=== PATIENT | female | born 1950 | race African-American/Black ===

== ENCOUNTER → 2019-10-30 | Outpatient (CLI) | payer MEDICARE, OTHER ==
[2019-10-30 12:56] VITALS: BP 114/58
== END | disposition home or self-care (01) ==
LOC: SURG 12:22
PROVIDERS: ATTEND Anesthesiology
DX: M54.12 Radiculopathy, cervical region (principal); I10 Essential (primary) hypertension; M19.90 Unspecified osteoarthritis, unspecified site
CPT/HCPCS: 99204; G0463

== ENCOUNTER → 2019-12-18 | Outpatient (CLI) | payer MEDICARE, OTHER ==
[~2019-12-18] MED LIST: 0.9 % SODIUM CHLORIDE 10 ML VIAL. ONE; ALLO100T PO; AMIT25TA PO; ASPI-630 PO; ATEN1TAB4 PO; ATOR20TA58 PO; CHOL500021 PO; DEXAMETHASONE SOD PHOS 10 MG/ML VIAL. ONE; DULO60CA6 PO; GABA-587 PO; GABA800T5 PO; HYDR200T5 PO; IOHEXOL 300 MG/ML 50 ML VIAL. ONE; LEVO100T5 PO; LIDOCAINE 1% PF 30 ML VIAL. ONE; MELA5TAB20 PO; METF500T16 PO; MONT10TA80 PO; POTA20TA4 PO
[2019-12-18 14:32] VITALS: BP 139/79
== END | disposition home or self-care (01) ==
LOC: SURG 13:00
PROVIDERS: ATTEND Anesthesiology
DX: M54.12 Radiculopathy, cervical region (principal); I10 Essential (primary) hypertension; Z79.82 Long term (current) use of aspirin; Z79.899 Other long term (current) drug therapy; Z88.0 Allergy status to penicillin
CPT/HCPCS: 62321; J1100; J2001; Q9967

== ENCOUNTER → 2020-03-04 | Outpatient (CLI) | payer MEDICARE, OTHER ==
[2020-03-04 13:33] VITALS: BP 152/87
== END | disposition home or self-care (01) ==
LOC: SURG 12:11
PROVIDERS: ATTEND Anesthesiology
DX: M54.16 Radiculopathy, lumbar region (principal); J45.909 Unspecified asthma, uncomplicated; M19.90 Unspecified osteoarthritis, unspecified site; I10 Essential (primary) hypertension; Z79.899 Other long term (current) drug therapy; Z79.82 Long term (current) use of aspirin; Z79.84 Long term (current) use of oral hypoglycemic drugs; Z88.0 Allergy status to penicillin
CPT/HCPCS: 62321; 72275; J1100; J2001; Q9967

== ENCOUNTER 2020-03-13 15:36 | Inpatient (IN) | payer MEDICARE, OTHER ==
[~2020-03-13] VITALS: Ht 172.7 cm; Wt 120.5 kg
[~2020-03-13 15:36] MED LIST changes: -0.9 % SODIUM CHLORIDE 10 ML VIAL. ONE; -DEXAMETHASONE SOD PHOS 10 MG/ML VIAL. ONE; -IOHEXOL 300 MG/ML 50 ML VIAL. ONE; -LIDOCAINE 1% PF 30 ML VIAL. ONE
--- NOTE | 2020-03-13 16:02 | EKG ---
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
--- NOTE | 2020-03-13 16:02 | PHYS DOC ---
Past History Past Medical History: Arthritis, Other Additional Past Medical Histor: Pricillamichaelus, (KELLEN FALK DO) Past Surgical History: No Surgical History (KELLEN FALK DO) Alcohol Use: None (KELLEN FALK DO) General Adult EDM: Chief Complaint: HEADACHE HPI: HPI: History obtained from patient. Patient is a 70-year-old female with a history of lupus and arthritis who presents with chief complaint of headache status post fall 3 days ago. She states she was walking in the house and fell to the ground. She denies memory of the circumstances regarding her fall. She thinks that she hit her head against carpet. She is unsure whether she lost consciousness or not. She states she is unsure of how long she was down. She states she had a progressive headache to the top of her head since then. States it is aching and nonradiating. Denies any acute vision or hearing changes. Denies any focal weakness. Denies history of cardiac disease. Denies any chest pain or shortness of breath. Denies fevers. Denies cough. She feels that she may have had some slurred speech intermittently throughout the day. Denies drug or alcohol usage. Denies any confusion or difficulty swallowing. Does not take any blood thinners. Patient denies any history of immobilization greater than 48 hours, recent h ospitalizations, recent surgery, recent trauma, , oral contraceptive usage, hormone replacement therapy, air travel greater than 8 hours, recent infectious disease, or general deterioration of their overall condition. (KELLEN FALK DO) Review of Systems: Review of Systems: Constitutional: Denies fever or chills Eyes: Denies change in visual acuity HENT: Denies nasal congestion or sore throat Respiratory: Denies cough or shortness of breath Cardiovascular: Denies chest pain or edema GI: Denies abdominal pain, nausea, vomiting, bloody stools or diarrhea : Denies dysuria Musculoskeletal: Positive for fall Integument: Denies rash Neurologic: Positive for headache Endocrine: Denies polyuria or polydipsia Lymphatic: Denies swollen glands Psychiatric: Denies depression or anxiety (KELLEN FALK DO) Allergies: Allergies: Allergies Coded Allergies Type Severity Reaction Last Updated Verified Penicillins Allergy Unknown 10/30/19 Yes (KELLEN FALK DO) Physical Exam: PE: Constitutional: Well developed, well nourished, no acute distress, non-toxic appearance. [] HENT: Normocephalic, atraumatic, bilateral external ears normal, oropharynx moist, no oral exudates, nose normal. [] Eyes: PERRLA, EOMI, conjunctiva normal, no discharge. [] Neck: Normal range of motion, no tenderness, supple, no stridor. [] Cardiovascular:Heart rate regular rhythm, no murmur [] Lungs & Thorax: Bilateral breath sounds clear to auscultation [] Abdomen: Bowel sounds normal, soft, no tenderness, no masses, no pulsatile masses. [] Skin: Warm, dry, no erythema, no rash. [] Back: No tenderness, no CVA tenderness. [] Extremities: No tenderness, no cyanosis, no clubbing, ROM intact, no edema. [] Neurologic: Alert and oriented X 3, normal motor function, normal sensory function, no focal deficits noted. [] Psychologic: Affect normal, judgement normal, mood normal. [] (KELLEN FALK DO) Current Patient Data: Labs: Laboratory Tests Test 03/13/20 16:07 White Blood Count 5.0 x10^3/uL Red Blood Count 4.78 x10^6/uL Hemoglobin 13.7 g/dL Hematocrit 41.7 % Mean Corpuscular Volume 87 fL Mean Corpuscular Hemoglobin 29 pg Mean Corpuscular Hemoglobin Concent 33 g/dL Red Cell Distribution Width 13.0 % Platelet Count 212 x10^3/uL Neutrophils (%) (Auto) 34 % Lymphocytes (%) (Auto) 53 % Monocytes (%) (Auto) 10 % Eosinophils (%) (Auto) 2 % Basophils (%) (Auto) 1 % Neutrophils # (Auto) 1.7 x10^3uL Lymphocytes # (Auto) 2.6 x10^3/uL Monocytes # (Auto) 0.5 x10^3/uL Eosinophils # (Auto) 0.1 x10^3/uL Basophils # (Auto) 0.0 x10^3/uL Sodium Level 138 mmol/L Potassium Level 2.7 mmol/L Chloride Level 101 mmol/L Carbon Dioxide Level 31 mmol/L Anion Gap 6 Blood Urea Nitrogen 11 mg/dL Creatinine 1.0 mg/dL Estimated GFR (Cockcroft-Gault) 66.7 BUN/Creatinine Ratio 11 Glucose Level 112 mg/dL Calcium Level 9.9 mg/dL Magnesium Level 1.8 mg/dL Total Bilirubin 0.4 mg/dL Aspartate Amino Transf (AST/SGOT) 16 U/L Alanine Aminotransferase (ALT/SGPT) 16 U/L Alkaline Phosphatase 127 U/L Troponin I Quantitative 0.230 ng/mL Total Protein 7.1 g/dL Albumin 3.2 g/dL Albumin/Globulin Ratio 0.8 Lipase 45 U/L Ethyl Alcohol Level < 10 mg/dL Current Medications Medications (Trade) Dose Ordered Sig/Samy Route PRN Reason Start Time Stop Time Status Last Admin Dose Admin Potassium Chloride 100 ml @ 100 mls/hr Q1H IV 03/13/20 17:00 03/13/20 20:59 03/13/20 17:41 Sodium Chloride 1,000 ml @ 100 mls/hr 1X ONCE IV 03/13/20 17:00 03/14/20 02:59 03/13/20 16:59 Aspirin (Aspirin Chewable) 324 mg 1X ONCE PO 03/13/20 17:15 03/13/20 17:17 DC Heparin Sodium (Porcine) (Heparin Sodium) 4,000 unit 1X ONCE IV 03/13/20 17:15 03/13/20 17:17 DC 03/13/20 17:45 Heparin Sodium/ Dextrose 250 ml @ 10 mls/hr 1X ONCE IV 03/13/20 17:15 03/14/20 18:14 03/13/20 17:48 Iohexol (Omnipaque 350 Mg/ml) 100 ml 1X ONCE IV 03/13/20 17:30 03/13/20 17:31 DC 03/13/20 17:43 Vital Signs: Vital Signs Date Time Temp Pulse Resp B/P (MAP) Pulse Ox O2 Delivery O2 Flow Rate FiO2 03/13/20 15:45 97.8 56 16 147/60 (89) 99 Room Air (KELLEN FALK ) EKG: EKG: EKG consistent with sinus bradycardia. Ventricular rate of 54 bpm. Flipped T waves noted in the inferior leads and -lead V2. No acute ST segment elevation appreciated. Nonspecific EKG. [] EKG#2 1722: EKG consistent with sinus bradycardia. Ventricular rate of 54 bpm. Left axis noted. Flipped T wave noted in leads III and aVF. No ST segment e levation or dynamic changes appreciated. (KELLEN FALK DO) Radiology/Procedures: Radiology/Procedures: [address] [address] IMAGING REPORT Signed PATIENT: ELISEO TRAMMELL AACCOUNT: [id number] : 1950 LOCATION: ER AGE: 70 SEX: F EXAM STATUS: REG ER ORD. PHYSICIAN: KELLEN FALK DO REASON: syncope PROCEDURE: CHEST AP ONLY CHEST AP ONLY INDICATION: syncope / Spl. Instructions: / History: . COMPARISON STUDY: None. FINDINGS: Lungs: Normal lung volume. No pulmonary mass or consolidation. The tracheobronchial tree and hilar structures are normal. Pleura: No pleural effusion or pneumothorax. Heart and Mediastinum: The cardiomediastinal silhouette is normal. The great vessels of the thorax are normal. IMPRESSION: No acute cardiopulmonary process. Electronically signed by: Sandi Hernandez MD (03/13/2020 4:22 PM) [id number] DICTATED AND SIGNED BY: SANDI HERNANDEZ MD DATE: 03/13/201621 CC: YASMANY CASTRO; KELLEN FALK DO ~MTH0 0 [][address] [address] IMAGING REPORT Signed PATIENT: ELISEO TRAMMELL AACCOUNT: [id number] : 1950 LOCATION: ER AGE: 70 SEX: F EXAM STATUS: REG ER ORD. PHYSICIAN: KELLEN FALK DO REASON: syncope PROCEDURE: CT HEAD AND CERVICAL SPINE WO CT head without contrast. CT cervical spine without contrast PQRS statement: CT scans at this facility use dose reduction including either automated exposure control, iterative reconstructions, and /or weight based radiation dosing via mA and kV modification when appropriate to reduce radiation dose to as low as reasonably achievable. HISTORY: Syncope. COMPARISON: CT head July 31, 2012 CT head findings: Anterior of the left superior frontal gyrus image 16 there is a 3 mm thin linear density along the surface not apparent on the prior exam this may be calcification although a small subarachnoid hemorrhage is not excluded. No mass. No hydrocephalus. No infarction. Heterogeneous areas of cerebral white matter hypoattenuation are nonspecific most likely representing changes of chronic small vessel ischemic disease. Orbits, mastoids and bones are unremarkable. IMPRESSION: 3 mm thin linear density along the surface of the left superior frontal gyrus could represent calcification versus a small subarachnoid hemorrhage. This is new from prior imaging. CT cervical spine findings: Precervical junction intact. Arthrosis with chronic sclerotic ossicles along the anterior C1 arch and bone spurring at the atlantodental articulation. Cervical vertebral body height and alignment intact. No fracture of the cervical spine. Cervical disc height loss and bulky disc osteophytes and uncovertebral spurring with spinal canal and neural foraminal stenoses at C4-C5, C5-C6 and C6-7. Lung apices unremarkable. Indistinct 3 center hypodense left thyroid mass. Retropharyngeal left carotid artery panfilo the left posterior pharyngeal wall. IMPRESSION: 1. No acute osseous injury of the cervical spine. 2. 3 cm hypodense left thyroid mass. Consider further evaluation with outpatient neck soft tissue ultrasound. 3. Cervical disc disease. FOR INTERNAL CODING PURPOSES Critical result: Findings discussed with KELLEN FALK at 03/13/2020 4:28 PM. RESULT CODE: (C) Electronically signed by: Varghese Serrano MD (03/13/2020 4:30 PM) [facility] [place] DICTATED AND SIGNED BY: VARGHESE SERRANO MD DATE: 03/13/20 163 CC: YASMANY CASTRO; KELLEN FALK DO ~MTH0 0 (KELLEN FALK DO) Heart Score: HEART Score for Chest Pain: HEART Score for Chest Pain Response (Comments) Value History Slighlty/Non-Suspicious 0 ECG Nonspecific Repolarizatio 1 Age > 65 2 Risk Factors 1 or 2 Risk Factors 1 Troponin >3 x Normal Limit 2 Total 6 Risk Factors: Risk Factors: DM, Current or recent (<one month) smoker, HTN, HLP, family hist ory of CAD, obesity. Risk Scores: Score 0 - 3: 2.5% MACE over next 6 weeks - Discharge Home Score 4 - 6: 20.3% MACE over next 6 weeks - Admit for Clinical Observation Score 7 - 10: 72.7% MACE over next 6 weeks - Early Invasive Strategies (KELLEN FALK DO) Course & Med Decision Making: Course & Med Decision Making Pertinent Labs and Imaging studies reviewed. (See chart for details) [] Patient is a 70-year-old female who presents with chief complaint of headache after fall 3 days ago. Initial vital signs unremarkable. EKG shows nonspecific T wave inversion in the inferior leads. She denies any chest pain or shortness of breath. CT imaging did note a nondescript density in the left frontal lobe. Radiology stated they cannot exclude subarachnoid hemorrhage. I did speak with neurosurgical CEPHALOMETRIC ANALYST Shira. After consultation with neurosurgeon Dr. Henriquez this likely represents incidental density. No concern for subarachnoid hemorrhage. Patient did have elevated troponin of 0.230 in the setting of normal kidney function. Potassium 2.7. Patient continues to deny any chest pain or shortness of breath. Likely NSTEMI in nature. CT PE study is pending at this time. Heparinization will be initiated. I did speak with electric meter repairer helper who felt the patient was appropriate to stay at [facility]. At this time CT PE study is pending. I have signed out the patient's emergency department care to Dr. Ruiz. We discussed the history, physical exam findings, completed and pending laboratory results and imaging studies. We have also discussed the current treatment plan and expected clinical course. Please refer to chart for the patient's remaining emergency department course, final disposition, and clinical impression(s). (KELLEN FALK DO) Course & Med Decision Making Signout received from off going physician. I reviewed patient's chart fully and reviewed ER work-up so far I personally saw patient and repeated certain aspects of history and physical examination. Given patient's hypokalemia, I administered an additional 40 mEq p.o. Kdur Patient's imaging negative. Daytime physician discussed case with hospitalist and electric meter repairer helper, given that imaging was negative patient is able to be admitted to our facility, [facility], for further inpatient medical management Patient was updated on this decision, all questions and concerns addressed prior to ER transportation to [facility] via EMS in stable condition (EZEQUIEL RUIZ DO) Hema Disclaimer: Hema Disclaimer: This electronic medical record was generated, in whole or in part, using a voice recognition dictation system. (KELLEN FALK DO) Departure Departure: Impression: Primary Impression: Hypokalemia Additional Impression: NSTEMI (non-ST elevated myocardial infarction) Disposition: 09 ADMITTED INPT THIS HOSP Admitting Physician: Julio Barr (EZEQUIEL RUIZ DO) Referrals: YASMANY CASTRO (PCP) KELLEN FALK DO Mar 13, 2020 16:02 EZEQUIEL RUIZ DO Mar 13, 2020 18:35
[2020-03-13 16:21] LABS: BASO % 1 % (0-3); EOS # 0.1 x10^3/uL (0.0-0.7); EOS % 2 % (0-3); HEMATOCRIT 41.7 % (36.0-47.0); HEMOGLOBIN 13.7 g/dL (12.0-15.5); LYMPH # 2.6 x10^3/uL (1.0-4.8); LYMPH % 53 % (24-48); MEAN CORPUSCULAR HEMOGLOBIN 29 pg (25-35); MEAN CORPUSCULAR HGB CONC 33 g/dL (31-37); MEAN CORPUSCULAR VOLUME 87 fL (79-100); MONO # 0.5 x10^3/uL (0.0-1.1); MONO % 10 % (0-9); NEUT # 1.7 x10^3uL (1.8-7.7); NEUT % 34 % (31-73); PLATELET COUNT 212 x10^3/uL (140-400); RED BLOOD COUNT 4.78 x10^6/uL (3.50-5.40)
--- NOTE | 2020-03-13 16:25 | RAD ---
CHEST AP ONLY INDICATION: syncope / Spl. Instructions: / History: . COMPARISON STUDY: None. FINDINGS: Lungs: Normal lung volume. No pulmonary mass or consolidation. The tracheobronchial tree and hilar structures are normal. Pleura: No pleural effusion or pneumothorax. Heart and Mediastinum: The cardiomediastinal silhouette is normal. The great vessels of the thorax are normal. IMPRESSION: No acute cardiopulmonary process. Electronically signed by: Luis Felipe Hernandez MD (03/13/2020 4:22 PM) [id number]
--- NOTE | 2020-03-13 16:32 | RAD ---
CT head without contrast. CT cervical spine without contrast PQRS statement: CT scans at this facility use dose reduction including either automated exposure control, iterative reconstructions, and /or weight based radiation dosing via mA and kV modification when appropriate to reduce radiation dose to as low as reasonably achievable. HISTORY: Syncope. COMPARISON: CT head July 31, 2012 CT head findings: Anterior of the left superior frontal gyrus image 16 there is a 3 mm thin linear density along the surface not apparent on the prior exam this may be calcification although a small subarachnoid hemorrhage is not excluded. No mass. No hydrocephalus. No infarction. Heterogeneous areas of cerebral white matter hypoattenuation are nonspecific most likely representing changes of chronic small vessel ischemic disease. Orbits, mastoids and bones are unremarkable. IMPRESSION: 3 mm thin linear density along the surface of the left superior frontal gyrus could represent calcification versus a small subarachnoid hemorrhage. This is new from prior imaging. CT cervical spine findings: Precervical junction intact. Arthrosis with chronic sclerotic ossicles along the anterior C1 arch and bone spurring at the atlantodental articulation. Cervical vertebral body height and alignment intact. No fracture of the cervical spine. Cervical disc height loss and bulky disc osteophytes and uncovertebral spurring with spinal canal and neural foraminal stenoses at C4-C5, C5-C6 and C6-7. Lung apices unremarkable. Indistinct 3 center hypodense left thyroid mass. Retropharyngeal left carotid artery panfilo the left posterior pharyngeal wall. IMPRESSION: 1. No acute osseous injury of the cervical spine. 2. 3 cm hypodense left thyroid mass. Consider further evaluation with outpatient neck soft tissue ultrasound. 3. Cervical disc disease. FOR INTERNAL CODING PURPOSES Critical result: Findings discussed with KELLEN FALK at 03/13/2020 4:28 PM. RESULT CODE: (C) Electronically signed by: Terence Calvillo MD (03/13/2020 4:30 PM) [facility]
[2020-03-13 16:40] LABS: ALBUMIN 3.2 g/dL (3.4-5.0); ALBUMIN/GLOBULIN RATIO 0.8 (1.0-1.7); CALCIUM 9.9 mg/dL (8.5-10.1); GFR 66.7; MAGNESIUM 1.8 mg/dL (1.8-2.4); TOTAL BILIRUBIN 0.4 mg/dL (0.2-1.0); TOTAL PROTEIN 7.1 g/dL (6.4-8.2)
[2020-03-13 16:43] LABS: POTASSIUM 2.7 mmol/L (3.5-5.1)
[2020-03-13] MEDS ORDERED: IV NORMAL SALINE 1,000ML 1,000 ML IV ONE (17:00)
[2020-03-13] MEDS: POTASSIUM CHLORIDE 10MEQ 100 ML IV SCH ×4 (17:00→20:00)
[2020-03-13] MEDS ORDERED: ASPIRIN CHEWABLE 81 MG TABLET. PO ONE (17:15)
[2020-03-13] MEDS ORDERED: HEPARIN 25,000UTS/250ML PREMIX 250 ML IV ONE (17:15)
[2020-03-13] MEDS ORDERED: HEPARIN for IV BOLUS 10,000 UNIT/10 ML VIAL. IV ONE (17:15)
[2020-03-13] MEDS ORDERED: IOHEXOL 350 MG/ML 100 ML VIAL. IV ONE (17:30)
--- NOTE | 2020-03-13 17:40 | EKG ---
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
[2020-03-13 17:59] LABS: BARBITURATES NEG (NEG); BENZODIAZEPINES NEG (NEG); CANNABINOIDS NEG (NEG); COCAINE NEG (NEG); METHADONE NEG (NEG); OPIATES POS (NEG); PHENCYCLIDINE NEG (NEG)
[2020-03-13 18:01] LABS: BILIRUBIN,URINE NEG (NEG); CLARITY,URINE CLEAR; COLOR,URINE YELLOW; GLUCOSE,URINE NEG (NEG); NITRITE,URINE NEG (NEG); UROBILINOGEN,URINE 0.2 mg/dL (0.2 mg/dL)
[2020-03-13 18:02] LABS: BACTERIA,URINE FEW /HPF (0-FEW); RBC,URINE 0 /HPF (0-2); SQUAMOUS EPITHELIAL CELL,UR FEW /LPF; WBC,URINE OCC /HPF (0-4)
[2020-03-13 18:03] LABS: AMPHETAMINE/METHAMPHETAMINE NEG (NEG)
--- NOTE | 2020-03-13 18:06 | RAD ---
Exam: CT of chest with contrast INDICATION: Syncope TECHNIQUE: Sequential axial images through the chest obtained following the administration of 100 mL of Isovue-370 IV contrast. Sagittal and coronal reformatted images were reconstructed from the axial data and reviewed. Comparisons: None FINDINGS: Visualized portions of the thyroid are unremarkable. No enlarged mediastinal lymph nodes are identified. Heart size is normal. No pericardial effusion. Thoracic aorta has a normal course and caliber. Pulmonary artery is nonenlarged. No pulmonary embolus identified within the main, lobar or segmental pulmonary arteries. Airways are patent. Patchy area of consolidation in the right lower lobe series 4 image 100 measuring approximately 1.5 cm Strandy opacities at dependent portion lungs likely representing atelectasis. No suspicious lung nodules are identified. No pleural effusion or thickening. Visualized upper abdomen is unremarkable. No suspicious osseous lesions or acute fractures. IMPRESSION: 1. No pulmonary embolus identified within the main, lobar or segmental pulmonary arteries. 2. Rounded area of consolidation in the right lower lobe may be infectious or inflammatory in etiology. Short-term follow-up imaging posttreatment to ensure resolution is recommended. Exposure: One or more of the following in the visualized dose reduction techniques were utilized for this examination: 1. Automated exposure control 2. Adjustment of the MA and/or KV according to patient size 3. Use of iterative of reconstructive technique Electronically signed by: Terese Hook MD (03/13/2020 6:03 PM) [facility]
[2020-03-13] MEDS ORDERED: POTASSIUM CHLORIDE 20 MEQ TABLET.ER. PO ONE (18:30)
[2020-03-13 20:15] VITALS: BP 147/79
[2020-03-13] MEDS ORDERED: GABA-587 PO (21:55)
[2020-03-13] MEDS: MELATONIN 3 MG TABLET PO SCH (22:35)
[2020-03-13] MEDS: DULoxetine HCL 60 MG CAPSULE.DR PO SCH (22:35)
[2020-03-13] MEDS: GABAPENTIN 400 MG CAPSULE. PO SCH (22:36)
[2020-03-13 23:45] VITALS: BP 102/60
[2020-03-14 04:00] VITALS: BP 123/84
[2020-03-14 07:00] VITALS: BP 110/55
[2020-03-14 07:34] LABS: BASO # 0.1 x10^3/uL (0.0-0.2); BASO % 1 % (0-3); EOS # 0.2 x10^3/uL (0.0-0.7); EOS % 4 % (0-3); HEMATOCRIT 39.6 % (36.0-47.0); HEMOGLOBIN 12.7 g/dL (12.0-15.5); LYMPH # 3.1 x10^3/uL (1.0-4.8); LYMPH % 57 % (24-48); MEAN CORPUSCULAR HEMOGLOBIN 29 pg (25-35); MEAN CORPUSCULAR HGB CONC 32 g/dL (31-37); MEAN CORPUSCULAR VOLUME 88 fL (79-100); MONO # 0.4 x10^3/uL (0.0-1.1); MONO % 7 % (0-9); NEUT # 1.7 x10^3uL (1.8-7.7); NEUT % 31 % (31-73); PLATELET COUNT 197 x10^3/uL (140-400); RED BLOOD COUNT 4.48 x10^6/uL (3.50-5.40); RED CELL DISTRIBUTION WIDTH 13.3 % (11.5-14.5); WHITE BLOOD COUNT 5.5 x10^3/uL (4.0-11.0)
[2020-03-14 08:06] LABS: CALCIUM 9.3 mg/dL (8.5-10.1); CREATININE 0.8 mg/dL (0.6-1.0); GFR 86.3; POTASSIUM 3.1 mmol/L (3.5-5.1)
[2020-03-14] MEDS ORDERED: POTASSIUM CHLORIDE 20 MEQ TABLET.ER. PO ONE ×4 (08:15→16:00)
[2020-03-14] MEDS: GABAPENTIN 400 MG CAPSULE. PO SCH ×3 (08:28→22:25)
[2020-03-14 10:59] VITALS: BP 103/54
[2020-03-14] MEDS: ACETAMINOPHEN 325 MG TABLET PO PRN ×2 (11:19→22:25)
--- NOTE | 2020-03-14 13:12 | PDOC2 ---
CONSULT DOS: DATE: 03/14/20 TIME: 13:11 Reason for Consult: Troponin elevation Referring Physician: Dr. Barr Chief Complaint Headache Source: Chart review, Patient Problem List Problems Medical Problems: (1) Hypokalemia Status: Acute (2) NSTEMI (non-ST elevated myocardial infarction) Status: Acute History of Present Illness 70-year-old female without any previous cardiac history presented with headache that started after she had a mechanical fall 3 days ago. She denied any loss of consciousness. She was found to be hypokalemic and admitted for further management. Her troponin level was slightly elevated prompting cardiology consultation. Patient denied any chest pain as such. She also denied any orthopnea/PND, palpitations or nausea/vomiting. Cardiovascular: HTN, hyperipidemia Musculoskeletal: Osteoarthritis Rheumatologic: Other (Lupus) Endocrine: Diabetes, Hypothyroidism Past Surgical History: No pertinent history Family History Negative for premature coronary disease Social History Patient admitted to smoking half pack cigarettes daily but denied any alcohol or drug use Current Medications Current Medications Potassium Chloride 100 ml @ 100 mls/hr Q1H IV Last administered on 03/13/20at 20:00; Start 03/13/20 at 17:00; Stop 03/13/20 at 20:59; Status DC Sodium Chloride 1,000 ml @ 100 mls/hr 1X ONCE IV Last administered on 03/13/20at 16:59; Start 03/13/20 at 17:00; Stop 03/14/20 at 02:59; Status DC Aspirin (Aspirin Chewable) 324 mg 1X ONCE PO Last administered on 03/13/20at 17:15; Start 03/13/20 at 17:15; Stop 03/13/20 at 17:17; Status DC Heparin Sodium (Porcine) (Heparin Sodium) 4,000 unit 1X ONCE IV Last administered on 03/13/20at 17:45; Start 03/13/20 at 17:15; Stop 03/13/20 at 17:17; Status DC Heparin Sodium/ Dextrose 250 ml @ 10 mls/hr 1X ONCE IV Last administered on 03/13/20at 17:48; Start 03/13/20 at 17:15; Stop 03/14/20 at 11:28; Status DC Iohexol (Omnipaque 350 Mg/ml) 100 ml 1X ONCE IV Last administered on 03/13/20at 17:43; Start 03/13/20 at 17:30; Stop 03/13/20 at 17:31; Status DC Potassium Chloride (Klor-Con) 40 meq 1X ONCE PO Last administered on 03/13/20at 18:30; Start 03/13/20 at 18:30; Stop 03/13/20 at 18:31; Status DC Duloxetine HCl (Cymbalta) 60 mg HS PO Last administered on 03/13/20at 22:35; Start 03/13/20 at 22:00 Gabapentin (Neurontin) 1,200 mg TID PO Last administered on 03/14/20at 12:55; Start 03/13/20 at 22:00 Melatonin (Melatonin) 9 mg HS PO Last administered on 03/13/20at 22:35; Start 03/13/20 at 22:00 Potassium Chloride (Klor-Con) 40 meq 1X ONCE PO Last administered on 03/14/20at 08:29; Start 03/14/20 at 08:15; Stop 03/14/20 at 08:23; Status DC Acetaminophen (Tylenol) 650 mg PRN Q6HRS PRN PO MILD PAIN / TEMP > 100.3'F Last administered on 03/14/20at 11:19; Start 03/14/20 at 11:15 Potassium Chloride (Klor-Con) 40 meq 1X ONCE PO Last administered on 03/14/20at 12:53; Start 03/14/20 at 12:30; Stop 03/14/20 at 12:34; Status DC Active Scripts Active Reported Gabapentin (Gabapentin) 400 Mg Capsule 1,200 Mg PO TID Klor-Con M20 (Potassium Chloride) 20 Meq Tab.er.prt 20 Meq PO BID Montelukast Sodium Tablet (Montelukast Sodium) 10 Mg Tablet 10 Mg PO PRN PRN Metformin Hcl 500 Mg Tablet 500 Mg PO BIDWMEALS Melatonin 5 Mg Tab.rapdis 10 Mg PO HS Levothyroxine Sodium 100 Mcg Tablet 100 Mcg PO DAILYBFRLUN Hydroxychloroquine Sulfate 200 Mg Tablet 200 Mg PO DAILYWSUP Cymbalta (Duloxetine Hcl) 60 Mg Capsule.dr 60 Mg PO HS D3-50 (Cholecalciferol (Vitamin D3)) 50,000 Unit Capsule 1 Cap PO WEEKLY 28 Days Atorvastatin Calcium 20 Mg Tablet 20 Mg PO DAILYWSUP Atenolol-Chlorthalidone 100-25 (Atenolol/Chlorthalidone) 1 Each Tablet 1 Each PO DAILYWLUN Aspirin 81 Mg Tab.chew 81 Mg PO BID Amitriptyline Hcl 25 Mg Tablet 25 Mg PO DAILYWLUN Allopurinol 100 Mg Tablet 100 Mg PO DAILY Allergies: Coded Allergies: Penicillins (Verified Allergy, Unknown, 10/30/19) PSYCHOLOGICAL ROS: No: Hallucinations Eyes: No: Loss of vision HEENT: No: Epistaxis ENDOCRINE: No: Palpitations Respiratory: No: Hemoptysis, Shortness of breath Cardiovascular: No: Chest Pain Gastrointestinal: No: Vomiting, Diarrhea Genitourinary: No: Henaturia Neurological: YES: Headaches; No: Seizures Skin: No: Rash General: Alert, Oriented X3 HEENT: Atraumatic Lungs: Clear to auscultation Heart: Regular rate Abdomen: Soft Extremities: No edema Psych/Mental Status: Mood NL VITALS Vital Signs Date Time Temp Pulse Resp B/P (MAP) Pulse Ox O2 Delivery O2 Flow Rate FiO2 03/14/20 10:59 98.4 59 20 103/54 (70) 98 Room Air Labs Laboratory Tests Test 03/13/20 16:07 03/13/20 17:18 03/13/20 19:21 03/13/20 22:25 White Blood Count 5.0 x10^3/uL (4.0-11.0) Red Blood Count 4.78 x10^6/uL (3.50-5.40) Hemoglobin 13.7 g/dL (12.0-15.5) Hematocrit 41.7 % (36.0-47.0) Mean Corpuscular Volume 87 fL (79-100) Mean Corpuscular Hemoglobin 29 pg (25-35) Mean Corpuscular Hemoglobin Concent 33 g/dL (31-37) Red Cell Distribution Width 13.0 % (11.5-14.5) Platelet Count 212 x10^3/uL (140-400) Neutrophils (%) (Auto) 34 % (31-73) Lymphocytes (%) (Auto) 53 % (24-48) Monocytes (%) (Auto) 10 % (0-9) Eosinophils (%) (Auto) 2 % (0-3) Basophils (%) (Auto) 1 % (0-3) Neutrophils # (Auto) 1.7 x10^3uL (1.8-7.7) Lymphocytes # (Auto) 2.6 x10^3/uL (1.0-4.8) Monocytes # (Auto) 0.5 x10^3/uL (0.0-1.1) Eosinophils # (Auto) 0.1 x10^3/uL (0.0-0.7) Basophils # (Auto) 0.0 x10^3/uL (0.0-0.2) Sodium Level 138 mmol/L (136-145) Potassium Level 2.7 mmol/L (3.5-5.1) Chloride Level 101 mmol/L (98-107) Carbon Dioxide Level 31 mmol/L (21-32) Anion Gap 6 (6-14) Blood Urea Nitrogen 11 mg/dL (7-20) Creatinine 1.0 mg/dL (0.6-1.0) Estimated GFR (Cockcroft-Gault) 66.7 BUN/Creatinine Ratio 11 (6-20) Glucose Level 112 mg/dL (70-99) Calcium Level 9.9 mg/dL (8.5-10.1) Magnesium Level 1.8 mg/dL (1.8-2.4) Total Bilirubin 0.4 mg/dL (0.2-1.0) Aspartate Amino Transf (AST/SGOT) 16 U/L (15-37) Alanine Aminotransferase (ALT/SGPT) 16 U/L (14-59) Alkaline Phosphatase 127 U/L (46-116) Troponin I Quantitative 0.230 ng/mL (0-0.055) 0.227 ng/mL (0-0.055) 0.222 ng/mL (0-0.055) Total Protein 7.1 g/dL (6.4-8.2) Albumin 3.2 g/dL (3.4-5.0) Albumin/Globulin Ratio 0.8 (1.0-1.7) Lipase 45 U/L (73-393) Ethyl Alcohol Level < 10 mg/dL (0-10) Urine Collection Type Unknown Urine Color Yellow Urine Clarity Clear Urine pH 7.0 Urine Specific [place] 1.015 Urine Protein Neg (NEG-TRACE) Urine Glucose (UA) Neg mg/dL (NEG) Urine Ketones (Stick) Neg mg/dL (NEG) Urine Blood Neg (NEG) Urine Nitrite Neg (NEG) Urine Bilirubin Neg (NEG) Urine Urobilinogen Dipstick 0.2 mg/dL (0.2 mg/dL) Urine Leukocyte Esterase Neg (NEG) Urine RBC 0 /HPF (0-2) Urine WBC Occ /HPF (0-4) Urine Squamous Epithelial Cells Few /LPF Urine Bacteria Few /HPF (0-FEW) Urine Opiates Screen Pos (NEG) Urine Methadone Screen Neg (NEG) Urine Barbiturates Neg (NEG) Urine Phencyclidine Screen Neg (NEG) Urine Amphetamine/Methamphetamine Neg (NEG) Urine Benzodiazepines Screen Neg (NEG) Urine Cocaine Screen Neg (NEG) Urine Cannabinoids Screen Neg (NEG) Urine Ethyl Alcohol Neg (NEG) Test 03/14/20 06:40 03/14/20 10:15 White Blood Count 5.5 x10^3/uL (4.0-11.0) Red Blood Count 4.48 x10^6/uL (3.50-5.40) Hemoglobin 12.7 g/dL (12.0-15.5) Hematocrit 39.6 % (36.0-47.0) Mean Corpuscular Volume 88 fL (79-100) Mean Corpuscular Hemoglobin 29 pg (25-35) Mean Corpuscular Hemoglobin Concent 32 g/dL (31-37) Red Cell Distribution Width 13.3 % (11.5-14.5) Platelet Count 197 x10^3/uL (140-400) Neutrophils (%) (Auto) 31 % (31-73) Lymphocytes (%) (Auto) 57 % (24-48) Monocytes (%) (Auto) 7 % (0-9) Eosinophils (%) (Auto) 4 % (0-3) Basophils (%) (Auto) 1 % (0-3) Neutrophils # (Auto) 1.7 x10^3uL (1.8-7.7) Lymphocytes # (Auto) 3.1 x10^3/uL (1.0-4.8) Monocytes # (Auto) 0.4 x10^3/uL (0.0-1.1) Eosinophils # (Auto) 0.2 x10^3/uL (0.0-0.7) Basophils # (Auto) 0.1 x10^3/uL (0.0-0.2) Activated Partial Thromboplast Time 129 SEC (23-33) 52 SEC (23-33) Sodium Level 141 mmol/L (136-145) Potassium Level 3.1 mmol/L (3.5-5.1) 2.9 mmol/L (3.5-5.1) Chloride Level 105 mmol/L (98-107) Carbon Dioxide Level 27 mmol/L (21-32) Anion Gap 9 (6-14) Blood Urea Nitrogen 12 mg/dL (7-20) Creatinine 0.8 mg/dL (0.6-1.0) Estimated GFR (Cockcroft-Gault) 86.3 Glucose Level 121 mg/dL (70-99) Calcium Level 9.3 mg/dL (8.5-10.1) Assessment/Plan 1. Slight troponin elevation, most probably demand ischemia. Patient denied any chest pain and EKG without acute changes. Stop heparin infusion. Plan for 2D echo and Lexiscan nuclear stress test as an outpatient. 2. Headache post mechanical fall. Telemetry did not show any significant arrhythmias. CT scan of the head was suspicious for subarachnoid hemorrhage but neurosurgery apparently was not concerned about the incidental density. Treat per primary team. 3. Hypokalemia: Replace orally 4. Hyperlipidemia: Continue statins 5. DM2: Treat per IM 6. Hypothyroidism: Continue levothyroxine 7. Hypertension: Controlled 8. Tobacco abuse: Advised on smoking cessation Thank you for your consultation LINNEA ROSALES MD Mar 14, 2020 13:12
[2020-03-14] MEDS ORDERED: MONTELUKAST 10 MG TABLET. PO PRN (14:45)
[2020-03-14 15:00] VITALS: BP 115/58
--- NOTE | 2020-03-14 15:29 | HP ---
ADMIT DATE: 03/13/2020 HISTORY OF PRESENT ILLNESS: The patient is a 70-year-old -[place] female patient who presented to the Emergency Room with chief complaint of headache, status post fall about 3 days ago. She did not remember the exact circumstances of her fall. She lives at home with her and said that he heard her falling and she thinks that might have hit her head against the car, but she is unsure whether she lost consciousness or not, and she was unsure as to how long she was down and apparently her headache has progressively worsened since then; however, she denied any acute vision or hearing changes. Denied any focal weakness. Denied any history of cardiac disease. Denied any chest pain or shortness of breath. She thought she might have slurred speech intermittently throughout the day; however, denied any drug or alcohol use. Denied any history of immobility, recent hospitalization, recent surgery, trauma, , oral contraceptive use, hormone replacement therapy, or air travel greater than 8 hours. She was extensively investigated in the Emergency Room and that include lab work as well as imaging studies. Her CT scan of the head and cervical spine showed that the patient has no acute osseous injury of the cervical spine and she has a 3 cm hypodense left thyroid mass. Consider further evaluation with outpatient neck soft tissue ultrasound and cervical disk disease. CT scan of the head showed 3 mm thin linear density along the surface of the left superior frontal gyrus could represents calcification versus small subarachnoid hemorrhage and this is new from prior images. Apparently, CT scans were reviewed by the neurosurgeon according to the ER physician and they do not feel at least by the ER report that this represents any subarachnoid hemorrhage. She has had an EKG consistent with sinus bradycardia with a ventricular rate of 54 beats per minute, flipped T waves noted in inferior leads in lead V2. No acute ST segment elevation appreciated. Nonspecific EKG changes. Her lab work showed that her white cell count, hemoglobin, hematocrit, MCV, platelet counts are all normal. However, her chemistry showed that the patient has profound hypokalemia with potassium of 2.7, although the rest of the electrolytes and liver function as well as kidney functions are all within normal range. Her urinalysis was essentially unremarkable and her toxic screen was positive for opiates, was negative for all other drugs. The patient was admitted for further evaluation and treatment. PAST MEDICAL HISTORY: Significant for hypertension, hyperlipidemia, hypothyroidism, systemic lupus erythematosus. She also stated that she is pre-diabetic. PAST SURGICAL HISTORY: Significant for total abdominal hysterectomy, bilateral salpingo-oophorectomy. ALLERGIES: SHE IS ALLERGIC TO PENICILLIN. MEDICATIONS: She is currently on following medications: Hydroxychloroquine 200 mg daily, atorvastatin calcium 20 mg once a day, atenolol/____ 100/25 mg once a day, aspirin 81 mg once a day, gabapentin 1200 mg 3 times a day, amitriptyline 25 mg daily, duloxetine 60 mg daily, potassium chloride 20 mEq twice a day, montelukast 10 mg daily, metformin 500 mg twice a day, levothyroxine sodium 100 mcg once a day, vitamin D3 50,000 units once a week, allopurinol 100 mg once a day, melatonin 10 mg at bedtime. FAMILY HISTORY: She has 2 brothers that are younger and 3 sisters older and they are seemingly healthy. One younger sister because of complication of systemic lupus erythematosus at the age of 66. Her mother due to breast cancer in her 60s. Father cause of is unknown. SOCIAL HISTORY: She is , has 1 daughter. She smokes half a pack a day and has been a smoker for more than 40 years. Does not drink alcohol or use any recreational drugs. She is retired. 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 REVIEW OF SYSTEMS: The patient denies any blurring of vision, cataract, glaucoma or macular degeneration. Denied any earache, tinnitus or sensorineural deafness. Denied any nosebleeds, stuffy nose or postnasal drip. Denied any sore throat, sore tongue, toothache, hoarseness of voice or difficulty swallowing. Denied any nausea, vomiting, diarrhea or constipation. Denied any hematemesis, melena or hematochezia. Denied any dysuria, frequency or hematuria. Denied any chest pain, shortness of breath, orthopnea, or paroxysmal nocturnal dyspnea. Denied any cough, phlegm or hemoptysis. Denied any chills, rigors or fever. PHYSICAL EXAMINATION: GENERAL: On arrival to the Emergency Room, she looked well and was clearly in no apparent respiratory distress. There was no pallor, jaundice, cyanosis or thyromegaly. No jugular venous distention. No lower limb edema. VITAL SIGNS: Her heart rate was 56, blood pressure 147/60, temperature 97.8, respiratory rate was 16, and oxygen saturation was 99%. HEAD, EYES, EARS, NOSE AND THROAT: Normocephalic and atraumatic. NECK: Supple. CARDIAC: Normal first and second heart sounds. No gallop, rub or murmur. CHEST: Clear to auscultation. No crepitation or rhonchi. ABDOMEN: Distended, soft, nontender. NEUROLOGIC: She was awake, alert, responding appropriately. All cranial nerves are intact. She moves extremities without difficulty. She stated that she normally ambulates without assistance or assistive devices and she is fairly independent, drives her car and do her own shopping. LABORATORY DATA: On arrival to the Emergency Room, she has had lab work done, which showed a white cell count 5000, hemoglobin 13.7, hematocrit 41.7, MCV 87 and platelet count of 212,000 with a manual differential showed 34% polymorphs, 53% lymphocytes and 10% monocytes. Her serum sodium 138, potassium 2.7, chloride 101, bicarbonate 31, anion gap of 6, BUN 11, creatinine 1, estimated GFR was 66 mL per minute. Her glucose 111, calcium was 9.9, magnesium was 1.8. Total bilirubin, AST, ALT were normal. Alkaline phosphatase was slightly elevated. Total protein 7.1, albumin 3.2. Serum lipase was 45. Her urinalysis was essentially unremarkable and her toxic screen was positive for opiates. Her chest x-ray showed normal lung volumes, no pulmonary mass or consolidation, the tracheobronchial tree and hilar structures are normal, and there is no pleural effusion or pneumothorax. The cardiomediastinal silhouette is normal. The great vessels of thorax are normal. Her CT scan of the head showed a 3 mm thin density along the surface of the left superior frontal gyrus that could represent calcification versus small subarachnoid hemorrhage. This is new from prior examination. CT scan of the cervical spine showed no acute osseous injury of the cervical spine. She has 3 cm hypodense left thyroid mass and to consider further evaluation with outpatient clinic and soft tissue ultrasound and cervical disk disease. Did have also CT angio of the chest, which basically showed no pulmonary embolus identified within the main lobar or segmental pulmonary arteries. She has rounded areas of consolidation in the right lower lobe, may be infectious, inflammatory etiology, short-term followup imaging, post-treatment to ensure resolution is recommended. The patient's initial troponin was slightly elevated at 0.230. She was admitted to do 2 more sets of cardiac enzyme and to consult the housekeeping room attendant. ASSESSMENT AND PLAN: In summary, this is a 70-year-old -[place] female patient who was admitted with fall and progressive headache. CT scan initially suspicious for possible subarachnoid hemorrhage; however, the CT scan was reviewed by the neurosurgical team at [facility], I did not feel that there is any bleeding. The patient's initial lab work also showed that her potassium extremely was low at 2.7 mEq per liter, although unknown to the patient, she is on atenolol/chlorthalidone, which is probably the reason for her hypokalemia. PLAN: My plan is to replenish her potassium. She has some finding on a CT scan that are concerning and she is a smoker for more than 30-40 years. I will definitely check her ACTH as well as her serum morning cortisol tomorrow morning. I would reconcile all her medication and discontinue hydrochlorothiazide or chlorthalidone and decide the further management accordingly. NIR FORDE MD DR: MANUEAL/harsha JOB#: [id number] / [id number]
[2020-03-14] MEDS: metFORMIN 500 MG TABLET PO SCH (16:18)
[2020-03-14] MEDS ORDERED: HYDROXYCHLOROQUINE 200 MG TABLET PO SCH (17:00)
[2020-03-14] MEDS ORDERED: ATORVASTATIN CALCIUM 20 MG TABLET PO SCH (17:00)
[2020-03-14 19:50] VITALS: BP 97/62
[2020-03-14] MEDS: POTASSIUM CHLORIDE 20 MEQ TABLET.ER. PO SCH (21:00)
[2020-03-14] MEDS: DULoxetine HCL 60 MG CAPSULE.DR PO SCH (22:25)
[2020-03-14] MEDS: ASPIRIN CHEWABLE 81 MG TABLET. PO SCH (22:25)
[2020-03-14] MEDS: MELATONIN 3 MG TABLET PO SCH (22:25)
[2020-03-14 23:07] VITALS: BP 106/64
--- NOTE | 2020-03-14 23:54 | CONS ---
DATE OF CONSULTATION: NEUROLOGY CONSULTATION REFERRING PHYSICIAN: Dr. Barr. REASON FOR CONSULTATION: Severe headache, dizziness and blurred vision. HISTORY OF PRESENT ILLNESS: This is a 70-year-old right-handed -[place] female who was admitted through Emergency Room on 03/13/2020 after she presented with a 3-day history of progressive worsening of global headaches associated with blurred vision and dizziness described as unsteadiness. According to the patient 3 days ago, she fell forward at home, going to bathroom. She apparently lost her consciousness, but she did not recall any events or any symptoms prior to the fall; however, she does not recall how long she stay on the floor. Her heard the fall and brought her back to bed room and put her back on the bed. The patient has had progressive generalized headaches and sometimes associated with blurred vision and dizziness described as unsteadiness. She is not able to walk because of dizziness. She denies nausea, vomiting, chest pain, shortness of breath or palpitation, dysarthria, or dysphagia. Initial nonenhanced head CT scan revealed evidence of hyperdensity confined to the superior left frontal gyrus, probably represent calcifications. Currently, the patient denies any headaches, visual disturbances, chest pain, dysarthria or weakness. She does complain of numbness and paresthesia of the lower extremities and she related that to peripheral neuropathy. In the Emergency Room, she was found to have severe hypokalemia at 2.7. PAST MEDICAL HISTORY: Significant for hypertension, hyperlipidemia, systemic lupus erythematosus, hypothyroidism, peripheral neuropathy in the lower extremities and prediabetic. PAST SURGICAL HISTORY: Positive for total abdominal hysterectomy. FAMILY HISTORY: Sister had systemic lupus erythematosus and at age of 66. Mother had breast cancer and she at age of 60. SOCIAL HISTORY: The patient is . She has 1 daughter. She smokes half pack of cigarettes daily. She denies alcohol drinking or illicit drug use. She is retired. CURRENT HOME MEDICATIONS: Include hydroxychloroquine, Lipitor, gabapentin, amitriptyline, duloxetine, potassium, metformin, levothyroxine, vitamin D3, allopurinol, melatonin. ALLERGIES: PENICILLIN. PHYSICAL EXAMINATION: GENERAL: Obese -[place] female, not in acute distress. She weighs 120.5 pounds. VITAL SIGNS: Blood pressure 103/54, respiratory rate 20, pulse is 59, temperature 98.1, oxygen saturation 98% on room air. HEENT: Normocephalic, atraumatic, otherwise unremarkable. NECK: Supple. Negative for carotid bruit, lymphadenopathy or thyromegaly. LUNGS: Clear to A and P. CARDIOVASCULAR: Regular rate and rhythm, normal S1, S2. ABDOMEN: Soft. Bowel sounds positive. EXTREMITIES: Negative for cyanosis, clubbing or edema. NEUROLOGICAL EXAM: Mental Status: The patient is alert and oriented x 3. Speech is fluent. There is no language dysfunction. Memory, judgment, and abstracting thinking are normal. The patient denies hallucination or delusion. CRANIAL NERVES: Visual stevens are full. The pupils are reactive to light and accommodation. The extraocular movements are intact. There is no nystagmus. There is no facial motor or sensory deficits. Hearing is intact bilaterally. The palate is elevated symmetrically. Sternocleidomastoid muscles are powerful bilaterally. The patient shrugs her shoulders symmetrically, protrudes her tongue in the midline without fasciculation or atrophy. MOTOR: No focal muscle bulk was seen. The tone is normal. The strength is 5/5 throughout. SENSORY EXAMINATION: Revealed diminished pinprick and light touch senses in patchy distributions in distal lower extremities. Deep tendon reflexes were symmetric and hypoactive with absent Achilles responses. Gait not tested. DIAGNOSTIC DATA: A head CT scan revealed no evidence of acute intracranial process, but it showed 3 mm hyperdensity confined to the left superior frontal gyrus, probably represent calcifications. Cervical spine CT scan revealed evidence of degenerative disk disease between C4-C5, C5-C6 and C6-C7, otherwise no acute fracture. A 3 cm hypodense area C confined to the left thyroid mass. CT angio of the chest revealed no evidence of pulmonary embolism, but showed rounded consolidation confined to the right lower lobe. LABORATORY DATA: CBC revealed white blood cells of 5.5 thousand, hemoglobin 12.7, hematocrit 39.6, platelet count 197,000. Chemistry revealed sodium of 141, potassium 3.1, chloride 105, CO2 of 27, BUN 12, creatinine 0.8, glucose 121, calcium 9.3. Urinalysis is negative for urinary tract infections. Urine drug screen is negative as well. Troponin level is elevated in 3 sessions between 0.23 to 0.22. Elevated troponin level. IMPRESSION: 1. Status post a fall at home 3 days ago followed by progressive headaches, dizziness and blurred vision, probably represent postconcussion syndrome. No evidence of subarachnoid hemorrhage. 2. Multiple medical problems include a longstanding history of systemic lupus erythematosus, hyperlipidemia, hypertension, obesity, peripheral neuropathy in the lower extremities, prediabetes mellitus, hypothyroidism. 3. Positive CT of the cervical spine. 4. Left thyroid mass and hypokalemia. RECOMMENDATIONS: 1. Continue with current management initiated by Dr. Barr. 2. Correct hypokalemia. 3. Cardiology consult has been requested. 4. Physical therapy evaluation. M Pan KAYE MD DR: HANNAH/harsha JOB#: [id number] / [id number]
[2020-03-15 05:10] VITALS: BP 117/79
[2020-03-15] MEDS: ACETAMINOPHEN 325 MG TABLET PO PRN (07:45)
[2020-03-15] MEDS: ASPIRIN CHEWABLE 81 MG TABLET. PO SCH (07:48)
[2020-03-15] MEDS: POTASSIUM CHLORIDE 20 MEQ TABLET.ER. PO SCH (07:48)
[2020-03-15] MEDS: metFORMIN 500 MG TABLET PO SCH (07:49)
[2020-03-15] MEDS: GABAPENTIN 400 MG CAPSULE. PO SCH ×2 (07:49→13:52)
[2020-03-15] MEDS ORDERED: ATENOLOL 50 MG TABLET PO SCH (09:00)
[2020-03-15] MEDS ORDERED: ALLOPURINOL 100 MG TABLET. PO SCH (09:00)
[2020-03-15 09:37] LABS: CALCIUM 9.3 mg/dL (8.5-10.1); CREATININE 0.8 mg/dL (0.6-1.0); GFR 86.3; POTASSIUM 4.1 mmol/L (3.5-5.1)
[2020-03-15 10:42] VITALS: BP 105/60
[2020-03-15] MEDS ORDERED: LEVOTHYROXINE 100 MCG TABLET PO SCH (11:00)
[2020-03-15] MEDS ORDERED: AMITRIPTYLINE HCL 25 MG TABLET PO SCH (12:00)
[2020-03-15 14:55] VITALS: BP 122/78
--- NOTE | 2020-03-15 19:03 | DS ---
DATE OF DISCHARGE: 03/15/2020 HOSPITAL COURSE: The patient is a 70-year-old -[place] female patient who was admitted originally with generalized weakness and headache. She has fallen about 3 days ago, although she could not remember the exact circumstances of her fall. She lives at home with her and said that he heard her falling. She thinks she might have hit her head against the carpet. She was extensively investigated and CT scan of the head showed 3 mm thin linear density along the surface of the left severe frontal gyrus that could represent calcification versus small subarachnoid hemorrhage that is new from prior images. CT scan was reviewed by the neurosurgeon. According to the ER physician, they did not feel that this represents any subarachnoid hemorrhage. Her lab work showed that she has marked hypokalemia as well as slightly elevated troponin. Therefore, the patient was admitted to replenish her potassium and also to consult the customer quality specialist. She was seen in fact by the customer quality specialist and who did not recommend any further workup as an inpatient, she can have a CT scan as well as an echocardiogram done as an outpatient. Her telemetry did not show any arrhythmias. Her potassium was replenished and her potassium has risen from 2.7 to 4.1. The patient felt generally very well and has been up and about. She was seen in consultation also by the neurologist and basically recommended to continue physical and occupational therapy and the patient was therefore discharged home. I did discontinue her chlorthalidone that she was not aware and I gave her a prescription for atenolol 100 mg once a day. PHYSICAL EXAMINATION: GENERAL: When I saw her this afternoon, she looked well and was clearly in no apparent respiratory distress. No pallor, jaundice, cyanosis or thyromegaly. No jugular venous distention. No limb edema. VITAL SIGNS: Her heart rate was 58, blood pressure 122/78, temperature 97.7, respiratory rate was 20, and oxygen saturation was 98% on room air, blood pressure was 122/78. The rest of clinical exam is stable. LABORATORY DATA: This morning showed a serum sodium 140, potassium 4.1, chloride 107, bicarbonate 27, anion gap of 6, BUN 13, creatinine 0.8, estimated GFR was 86 mL per minute. Her glucose was 108 and calcium was 9.3. DISCHARGE MEDICATIONS: The patient was discharged home to continue on allopurinol 100 mg once a day, amitriptyline 25 mg daily with lunch, aspirin 81 mg twice a day, atorvastatin calcium 20 mg daily, cholecalciferol vitamin D3 50,000 units once a week, duloxetine 60 mg daily, gabapentin 1200 mg 3 times a day, hydroxychloroquine sulfate 200 mg daily, levothyroxine sodium 100 mcg once a day, melatonin 3 mg at bedtime, metformin 500 mg twice a day with meals, montelukast for Singulair 10 mg once a day at bedtime, potassium chloride for Klor-Con 20 mEq p.o. b.i.d. I did discontinue her atenolol and chlorthalidone and gave her a prescription for atenolol alone. FINAL DISCHARGE DIAGNOSES: 1. Generalized weakness and fall. 2. Probably diuretic-induced hypokalemia, slight elevation of troponin, likely due to demand ischemia, hyperlipidemia, type 2 diabetes, hypothyroidism, hypertension, tobacco use disorder. NIR FORDE MD DR: MANUELA/harsha JOB#: [id number] / [id number]
--- NOTE | 2020-03-15 19:58 | PN ---
DATE: SUBJECTIVE: The patient denies any new medical or neurological complaints; however, she continues to complain of severe global headaches at 8/10. She denies chest pain, shortness of breath or palpitation, dysarthria or dysphagia, dizziness or weakness. She drinks and eats well. She moves and walk without assistance. OBJECTIVE: GENERAL: Well-developed, well-nourished female, not in acute distress. VITAL SIGNS: Blood pressure 105/60, respiratory rate 20, pulse is 58, oxygen saturation 95% on room air, temperature 97.8. HEENT: Normocephalic, atraumatic, otherwise unremarkable. NECK: Supple. Negative for carotid bruit, lymphadenopathy or thyromegaly. LUNGS: Clear to A and P. CARDIOVASCULAR: Regular rate and rhythm, normal S1, S2. There is no S3, S4 or murmur. ABDOMEN: Soft. Bowel sounds positive. EXTREMITIES: Negative for cyanosis, clubbing or edema. NEUROLOGICAL EXAM: Mental Status: The patient is alert and oriented x 3. Speech is fluent. There is no language dysfunction. Memory, judgment, and abstracting thinking are normal. The patient denies hallucination or delusion. Cranial nerves are intact. Motor: No focal muscle bulk was seen. The tone is normal. The strength was 5/5 throughout. Sensory examination revealed diminished pinprick and light touch senses in patchy distributions in both lower extremities. Deep tendon reflexes were symmetric and hypoactive with absent Achilles responses. Gait and coordination were normal. IMPRESSION: 1. Posttraumatic head injury secondary to fall 3 days ago without preceding any symptoms, etiology uncertain, rule out syncope versus seizure. 2. Global headaches after fall and closed head injury, probably represents postconcussion syndrome as she presented on the day of admission with dizziness, difficulty to walk and to concentrate. 3. Multiple medical problems include systemic lupus erythematosus, hypertension, hyperlipidemia, obesity, hypothyroidism and possible peripheral neuropathy in the lower extremities, and hypokalemia. 4. Cervical spine degenerative disk disease. RECOMMENDATIONS: 1. Continue with current management initiated by Dr. Barr. 2. Continue with recommendation initiated by Cardiology. M Pan KAYE MD DR: HANNAH/harsha JOB#: [id number] / [id number]
[2020-03-16 05:06] LABS: HEMOGLOBIN A1C 6.5 % (4.8-5.6)
[2020-03-21] MEDS ORDERED: CHOLECALCIFEROL (VITAMIN D3) 50,000 UNIT CAPSULE PO SCH (09:00)
== END 2020-03-15 15:50 | disposition home or self-care (01) | DRG 640 ==
LOC: ER 15:36 → ICU 17:36 → 1 SOUTH 03-14 20:05
PROVIDERS: ADMIT Internal Medicine; ATTEND Internal Medicine
DX: E87.6 Hypokalemia (principal); I21.A1 Myocardial infarction type 2; Z68.41 Body mass index [BMI] 40.0-44.9, adult; E03.9 Hypothyroidism, unspecified; E66.9 Obesity, unspecified; E78.5 Hyperlipidemia, unspecified; F07.81 Postconcussional syndrome; F17.210 Nicotine dependence, cigarettes, uncomplicated; I10 Essential (primary) hypertension; M19.90 Unspecified osteoarthritis, unspecified site; M25.78 Osteophyte, vertebrae; M32.9 Systemic lupus erythematosus, unspecified; M50.30 Other cervical disc degeneration, unspecified cervical region; S09.90XA Unspecified injury of head, initial encounter; T50.2X5A Adverse effect of carbonic-anhydrase inhibitors, benzothiadiazides and other diuretics, initial encounter; Y93.01 Activity, walking, marching and hiking; Z80.3 Family history of malignant neoplasm of breast; Z83.2 Family history of diseases of the blood and blood-forming organs and certain disorders involving the immune mechanism; Z90.710 Acquired absence of both cervix and uterus; Z88.0 Allergy status to penicillin; W18.39XA Other fall on same level, initial encounter; Y93.89 Activity, other specified; Y92.89 Other specified places as the place of occurrence of the external cause; Y99.8 Other external cause status; E11.42 Type 2 diabetes mellitus with diabetic polyneuropathy; Z79.4 Long term (current) use of insulin
CPT/HCPCS: 36415; 70450; 71045; 71275; 72125; 80048; 80053; 80307; 81001; 82024; 82533; 83036; 83690; 83735; 84132; 84484; 85025; 85730; 93005; 96361; 96365; 96366; 96372; 96376; G0480; J1644; J3480; Q9967; 99285-25; J7030

== ENCOUNTER → 2020-05-22 | Outpatient (CLI) | payer MEDICARE, OTHER ==
--- NOTE | 2020-05-22 14:43 | RAD ---
Thyroid ultrasound without comparison for thyroid mass. TECHNIQUE AND FINDINGS: Real-time grayscale and color Doppler evaluation of the thyroid gland is perf ormed. The right lobe measures 4.8 x 1.6 x 1.3 cm and the left measures 5.0 x 2.2 x 2.0 cm. The isthm us measures 1 mm in thickness. No color flow throughout the gland. There are several thyroid nodules on the right, including a solid smoothly marginated hypoechoic nodule which is wider than tall and mallory s no internal echogenic foci and measures 0.9 x 0.7 x 0.6 cm, constituting a TR 4 lesion. There is a second larger similar-appearing nodule slightly anterior and medial to the first, measuring 1.3 x 0.7 x 0.6 cm, also constituting a TR 4 lesion. On the left, there is a 2.8 x 2.0 x 1.3 cm similar-appear ing nodule, consistent with a TR 4 lesion. No suspicious adenopathy is seen. IMPRESSION: 1. Multinodular thyroid as described. There are 3 separate TR 4 nodules, the largest which is on the left at 2.8 cm. ACR TI-RADS 2017 Composition - cystic or completely cystic: Benign, no further score - spongiform: Benign, no further score - mixed cystic and Solid: 1 point - solid or almost completely solid: 2 points Echogenicity - anechoic: 0 points - hyper- or isoechoic: 1 point - hypoechoic: 2 points - very hypoechoic: 3 points Shape (assess on transverse plane) - wider than tall: 0 points - taller than wide: 3 points Margin - smooth: 0 points - ill-defined: 0 points - lobulated/irregular: 2 points - extra-thyroidal extension: 3 points Echogenic Foci - none: 0 points - large comet tail artifact: 1 point - peripheral/rim calcifications: 2 points - punctate echogenic foci: 3 points TR1 - 0-1 points; Benign TR2 - 2 points; Not Suspicious TR3 - 3 points; Mildly Suspicious; Follow-up at 1,3,5 years for >= 1.5cm and FNA for >=2.5cm TR4 - 4-6 points; Moderately Suspicious; Follow-up at 1,2,3,5 years for >= 1.0cm and FNA for >= 1.5cm TR5 - 7+ points; Highly Suspicous; Follow=up at 1,2,3,4,5 years for >= 0.5cm and FNA for >= 1.0cm Notes: Only score and report the Four highest scoring nodules. Significant interval enlargement on fo llow-uup is defined as >20% and > 2mm in two dimensions or > 50% increase in volume. If there are mul tiple nodules, the two with the highest ACR TI-RADS score should be sampled, rather than the two larg est. Electronically signed by: Yared Taylor MD (05/22/2020 2:40 PM) [id number]
== END ==
LOC: US 10:53
PROVIDERS: ATTEND Physician Assistant Medical
DX: E04.2 Nontoxic multinodular goiter (principal)
CPT/HCPCS: 76536

== ENCOUNTER → 2020-10-12 | Outpatient (CLI) | payer MEDICARE, OTHER ==
--- NOTE | 2020-10-14 17:40 | RAD ---
DATE: 10/12/2020 EXAM: DIGITAL SCREEN BILAT W/CAD HISTORY: Screening COMPARISON: Prior exams dating back to 04/10/2017 This study was interpreted with the benefit of Computerized Aided Detection (CAD). Breast Density: SCATTERED The breast parenchyma shows scattered fibroglandular densities. Breast parenchyma level B. FINDINGS: No mass, suspicious calcification, or architectural distortion in either breast. IMPRESSION: No evidence of malignancy. BI-RADS CATEGORY: 1 NEGATIVE RECOMMENDED FOLLOW-UP: 12M 12 MONTH FOLLOW-UP PQRS compliance statement: Patient information was entered into a reminder system with a target due date for the next mammogram. Mammography is a sensitive method for finding small breast cancers, but it does not detect them all and is not a substitute for careful clinical examination. A negative mammogram does not negate a clinically suspicious finding and should not result in delay in biopsying a clinically suspicious abnormality. "Our facility is accredited by the [employer] Mammography Program."
== END ==
LOC: MAMMO 14:05
PROVIDERS: ATTEND Physician Assistant Medical
DX: Z12.31 Encounter for screening mammogram for malignant neoplasm of breast (principal)
CPT/HCPCS: 77067

== ENCOUNTER 2021-04-04 15:37 | Emergency (ER) | payer MEDICARE, OTHER ==
[~2021-04-04] VITALS: Ht 172.7 cm; Wt 106.8 kg
[~2021-04-04 15:37] MED LIST changes: -DULO60CA6 PO; +DULO60CA7 PO; +POTA-121 PO; -POTA20TA4 PO
[2021-04-04] MEDS ORDERED: MECLIZINE 12.5 MG TABLET. PO ONE (16:15)
--- NOTE | 2021-04-04 16:33 | EKG ---
[address] [address] Test Date: 2021-04-04 Test Time: 16:20:13 Pat Name: ELISEO TRAMMELL Department: Room: Gender: F Critical Care Rn: LUIGI : 1950 Requested By: JULISSA ARIAS Order Number: [id number] Reading MD: Measurements Intervals [place] Rate: 59 P: 28 MA: 134 QRS: -25 QRSD: 92 T: -17 QT: 434 QTc: 430 Interpretive Statements SINUS RHYTHM LEFTWARD AXIS LEFT VENTRICULAR HYPERTROPHY T ABNORMALITY IN INFERIOR LEADS ABNORMAL ECG RI6.02 No previous ECG available for comparison
[2021-04-04 16:52] LABS: BASO % 0 % (0-3); EOS # 0.2 x10^3/uL (0.0-0.7); EOS % 3 % (0-3); HEMOGLOBIN 14.2 g/dL (12.0-15.5); LYMPH # 2.9 x10^3/uL (1.0-4.8); LYMPH % 48 % (24-48); MEAN CORPUSCULAR HEMOGLOBIN 29 pg (25-35); MEAN CORPUSCULAR HGB CONC 33 g/dL (31-37); MEAN CORPUSCULAR VOLUME 88 fL (79-100); MONO # 0.4 x10^3/uL (0.0-1.1); MONO % 7 % (0-9); NEUT # 2.5 x10^3uL (1.8-7.7); NEUT % 41 % (31-73); PLATELET COUNT 244 x10^3/uL (140-400); RED BLOOD COUNT 4.91 x10^6/uL (3.50-5.40); RED CELL DISTRIBUTION WIDTH 14.1 % (11.5-14.5); WHITE BLOOD COUNT 6.1 x10^3/uL (4.0-11.0)
[2021-04-04 17:03] LABS: CALCIUM 9.6 mg/dL (8.5-10.1); CREATININE 0.8 mg/dL (0.6-1.0); GFR 86.1; POTASSIUM 4.1 mmol/L (3.5-5.1)
--- NOTE | 2021-04-04 17:03 | RAD ---
Exam performed: CT scan of the head without contrast. Date of Service: 04/04/2021. Comparison: CT head without contrast from 03/13/2020 and 07/31/2012.. Clinical History: Headache, dizziness. Technique: Helical acquisitions are obtained from the foramen magnum to the vertex without intravenou s administration of contrast. Findings: The ventricles are midline without evidence of dilatation. Normal glaser-white differentiation is maint ained. A tiny 2 to 3 mm linear density is seen in the left superior frontal gyrus, axial image 14/33. This appears unchanged since the prior exam an perhaps represents a small area of calcification.. Th ere are areas of low-attenuation in both periventricular and subcortical deep white matter suggesting small vessel ischemic changes. There is no extra axial fluid collection, intraparenchymal hemorrhage or mass lesion. The visualized portions of the orbits, paranasal sinuses and the mastoid air cells appear clear. The calvarium is intact. Impression: 1. No acute intracranial process detected. 2. Mild age-related atrophy and bilateral periventricular small vessel ischemic changes seen. RS Compliance Statement: One or more of the following individualized dose reduction techniques were utilized for this examinat ion: 1. Automated exposure control 2. Adjustment of the mA and/or kV according to patient size 3. Use of iterative reconstruction technique Electronically signed by: Lashell Zavaleta MD (04/04/2021 5:01 PM) [facility]ULI[facility]
--- NOTE | 2021-04-04 17:05 | RAD ---
Exam performed: One view chest. Indication: Reason: headache, dizziness / Spl. Instructions: / History: Date of Service: 04/04/2021 4:42 PM Comparison: One view chest from 03/13/2020 and priors. Single AP upright portable view chest findings: Cardiomediastinal silhouette is within limits of normal. No acute infiltrates, effusion or pneumotho rax is detected. The bony structures are normal. Impression: No acute cardiopulmonary process is detected. Electronically signed by: Lashell Zavaleta MD (04/04/2021 5:02 PM) [facility]
[2021-04-04 17:20] LABS: ALBUMIN 3.4 g/dL (3.4-5.0); ALBUMIN/GLOBULIN RATIO 0.9 (1.0-1.7); TOTAL BILIRUBIN 0.4 mg/dL (0.2-1.0); TOTAL PROTEIN 7.4 g/dL (6.4-8.2)
[2021-04-04] MEDS ORDERED: ACETAMINOPHEN 500 MG TABLET PO ONE (18:00)
[2021-04-04] MEDS ORDERED: LOSARTAN 25 MG TABLET. PO STA (18:59)
[2021-04-04] MEDS ORDERED: CARVEDILOL 12.5 MG TABLET PO STA (18:59)
[2021-04-04 19:03] LABS: BARBITURATES NEG (NEG); BENZODIAZEPINES NEG (NEG); CANNABINOIDS NEG (NEG); COCAINE NEG (NEG); METHADONE NEG (NEG); OPIATES POS (NEG); PHENCYCLIDINE NEG (NEG)
[2021-04-04 19:05] LABS: BILIRUBIN,URINE NEG (NEG); CLARITY,URINE CLEAR; COLOR,URINE YELLOW; GLUCOSE,URINE NEG (NEG)
[2021-04-04 19:06] LABS: BACTERIA,URINE 0 /HPF (0-FEW); NITRITE,URINE NEG (NEG); RBC,URINE 0 /HPF (0-2); SQUAMOUS EPITHELIAL CELL,UR MOD /LPF; UROBILINOGEN,URINE 0.2 mg/dL (0.2 mg/dL); WBC,URINE 0 /HPF (0-4)
[2021-04-04 19:07] LABS: AMPHETAMINE/METHAMPHETAMINE NEG (NEG)
[2021-04-04 19:27] VITALS: BP 178/86
--- NOTE | 2021-04-04 19:37 | PHYS DOC ---
Past History Past Medical History: Arthritis, Diabetes (pre diabetes), High Cholesterol, Hypertension, Hypothyroid, NH, Other Additional Past Medical Histor: Lopus,gout (JULISSA ARIAS CUSTOMER SERVICES SUPERVISOR) Past Surgical History: Hysterectomy (JULISSA ARIAS CUSTOMER SERVICES SUPERVISOR) Alcohol Use: None (JULISSA ARIAS CUSTOMER SERVICES SUPERVISOR) Adult General Chief Complaint Chief Complaint: HEADACHE HPI HPI Patient is a 71-year-old female patient with history of hypertension, p rediabetes, high cholesterol, gout, NH on aspirin 81 mg twice a day, who presents to the ED today complaining of 10 out of 10 bilateral temporal headache, symptoms began a week ago. Patient denies any nausea, vomiting, chest pain or shortness of breath. Denies any trauma. She states today she developed dizziness today hence the reason she came to the ED. Patient denies anything specific and exacerbating or relieving her dizziness or headache. (JULISSA ARIAS CUSTOMER SERVICES SUPERVISOR) Review of Systems Review of Systems Constitutional: Denies fever or chills [] Eyes: Denies change in visual acuity, redness, or eye pain [] HENT: Denies nasal congestion or sore throat [] Respiratory: Denies cough or shortness of breath [] Cardiovascular: No additional information not addressed in HPI [] GI: Denies abdominal pain, nausea, vomiting, bloody stools or diarrhea [] : Denies dysuria or hematuria [] Musculoskeletal: Denies back pain or joint pain [] Integument: Denies rash or skin lesions [] Neurologic: Reports headache and dizziness. Denies headache, focal weakness or sensory changes [] All other systems were reviewed and found to be within normal limits, except as documented in this note. (JULISSA ARIAS CUSTOMER SERVICES SUPERVISOR) Current Medications Current Medications Current Medications Medications (Trade) Dose Ordered Sig/Samy Start Time Stop Time Status Last Admin Dose Admin Acetaminophen (Tylenol) 1,000 mg 1X ONCE 04/04/21 18:00 04/04/21 18:01 DC 04/04/21 18:03 1,000 MG Carvedilol (Coreg) 12.5 mg 1X STAT 04/04/21 18:59 04/04/21 19:05 DC Losartan Potassium (Cozaar) 25 mg 1X STAT 04/04/21 18:59 04/04/21 19:05 DC Meclizine HCl (Antivert) 12.5 mg 1X ONCE 04/04/21 16:15 04/04/21 16:16 DC 04/04/21 16:36 12.5 MG (JULISSA ARIAS M CUSTOMER SERVICES SUPERVISOR) Allergies Allergies Allergies Coded Allergies Type Severity Reaction Last Updated Verified Penicillins Allergy Unknown 10/30/19 Yes (JULISSA ARIAS M CUSTOMER SERVICES SUPERVISOR) Physical Exam Physical Exam Constitutional: Well developed, well nourished, no acute distress, non-toxic appearance. [] HENT: Normocephalic, atraumatic, bilateral external ears normal, oropharynx moist, no oral exudates, nose normal. [] Eyes: PERRLA, EOMI, conjunctiva normal, no discharge. [] Neck: Normal range of motion, no tenderness, supple, no stridor. [] Cardiovascular:Heart rate regular rhythm Lungs & Thorax: Bilateral breath sounds clear to auscultation [] Abdomen: Bowel sounds normal, soft, no tenderness, no masses, no pulsatile masses. [] Skin: Warm, dry, no erythema, no rash. [] Back: No tenderness, no CVA tenderness. [] Extremities: No tenderness, no cyanosis, no clubbing, ROM intact, no edema. [] Neurologic: Alert and oriented X 3, normal motor function, normal sensory function, no focal deficits noted. Cranial nerves II through XII intact Psychologic: Affect normal, judgement normal, mood normal. [] (JULISSA ARIAS CUSTOMER SERVICES SUPERVISOR) Current Patient Data Vital Signs Vital Signs Date Time Temp Pulse Resp B/P (MAP) Pulse Ox O2 Delivery O2 Flow Rate FiO2 04/04/21 18:05 64 20 178/86 (116) 99 Room Air 04/04/21 15:54 99.1 Lab Results Laboratory Tests Test 04/04/21 16:06 04/04/21 16:16 04/04/21 16:27 04/04/21 18:17 White Blood Count 6.1 x10^3/uL (4.0-11.0) Red Blood Count 4.91 x10^6/uL (3.50-5.40) Hemoglobin 14.2 g/dL (12.0-15.5) Hematocrit 43.0 % (36.0-47.0) Mean Corpuscular Volume 88 fL (79-100) Mean Corpuscular Hemoglobin 29 pg (25-35) Mean Corpuscular Hemoglobin Concent 33 g/dL (31-37) Red Cell Distribution Width 14.1 % (11.5-14.5) Platelet Count 244 x10^3/uL (140-400) Neutrophils (%) (Auto) 41 % (31-73) Lymphocytes (%) (Auto) 48 % (24-48) Monocytes (%) (Auto) 7 % (0-9) Eosinophils (%) (Auto) 3 % (0-3) Basophils (%) (Auto) 0 % (0-3) Neutrophils # (Auto) 2.5 x10^3uL (1.8-7.7) Lymphocytes # (Auto) 2.9 x10^3/uL (1.0-4.8) Monocytes # (Auto) 0.4 x10^3/uL (0.0-1.1) Eosinophils # (Auto) 0.2 x10^3/uL (0.0-0.7) Basophils # (Auto) 0.0 x10^3/uL (0.0-0.2) Glucose (Fingerstick) 83 mg/dL (70-99) Prothrombin Time 10.6 SEC (9.4-11.4) Prothrombin Time INR 1.0 (0.9-1.1) Activated Partial Thromboplast Time 22 SEC (23-33) L Sodium Level 144 mmol/L (136-145) Potassium Level 4.1 mmol/L (3.5-5.1) Chloride Level 106 mmol/L (98-107) Carbon Dioxide Level 28 mmol/L (21-32) Anion Gap 10 (6-14) Blood Urea Nitrogen 12 mg/dL (7-20) Creatinine 0.8 mg/dL (0.6-1.0) Estimated GFR (Cockcroft-Gault) 86.1 BUN/Creatinine Ratio 15 (6-20) Glucose Level 90 mg/dL (70-99) Calcium Level 9.6 mg/dL (8.5-10.1) Magnesium Level 2.0 mg/dL (1.8-2.4) Total Bilirubin 0.4 mg/dL (0.2-1.0) Aspartate Amino Transferase (AST) 17 U/L (15-37) Alanine Aminotransferase (ALT) 17 U/L (14-59) Alkaline Phosphatase 161 U/L (46-116) H Creatine Kinase 51 U/L (26-192) Creatine Kinase MB (Mass) 1.0 ng/mL (0.0-3.6) Creatine Kinase MB Relative Index 2.0 % (0-4) Troponin I High Sensitivity 472 ng/L (4-50) H NP-Qop-W-Type Natriuretic Peptide 129 pg/mL (0-124) H Total Protein 7.4 g/dL (6.4-8.2) Albumin 3.4 g/dL (3.4-5.0) Albumin/Globulin Ratio 0.9 (1.0-1.7) L Urine Collection Type Clean catch Urine Color Yellow Urine Clarity Clear Urine pH 5.5 Urine Specific Wallace 1.025 Urine Protein Neg (NEG-TRACE) Urine Glucose (UA) Neg mg/dL (NEG) Urine Ketones (Stick) Neg mg/dL (NEG) Urine Blood Neg (NEG) Urine Nitrite Neg (NEG) Urine Bilirubin Neg (NEG) Urine Urobilinogen Dipstick 0.2 mg/dL (0.2 mg/dL) Urine Leukocyte Esterase Neg (NEG) Urine RBC 0 /HPF (0-2) Urine WBC 0 /HPF (0-4) Urine Squamous Epithelial Cells Mod /LPF Urine Bacteria 0 /HPF (0-FEW) Urine Opiates Screen Pos (NEG) Urine Methadone Screen Neg (NEG) Urine Barbiturates Neg (NEG) Urine Phencyclidine Screen Neg (NEG) Urine Amphetamine/Methamphetamine Neg (NEG) Urine Benzodiazepines Screen Neg (NEG) Urine Cocaine Screen Neg (NEG) Urine Cannabinoids Screen Neg (NEG) Urine Ethyl Alcohol Neg (NEG) (JULISSA ARIAS APRN) EKG EKG [address] Garcia sinus rhythm HR 59 no STEMI[] (JULISSA ARIAS APRN) Radiology/Procedures Radiology/Procedures []PROCEDURE: CT HEAD WO CONTRAST Exam performed: CT scan of the head without contrast. Date of Service: 04/04/2021. Comparison: CT head without contrast from 03/13/2020 and 07/31/2012.. Clinical History: Headache, dizziness. Technique: Helical acquisitions are obtained from the foramen magnum to the vertex without intravenous administration of contrast. Findings: The ventricles are midline without evidence of dilatation. Normal glaser-white differentiation is maintained. A tiny 2 to 3 mm linear density is seen in the left superior frontal gyrus, axial image 14/33. This appears unchanged since the prior exam an perhaps represents a small area of calcification.. There are areas of low-attenuation in both periventricular and subcortical deep white matter suggesting small vessel ischemic changes. There is no extra axial fluid collection, intraparenchymal hemorrhage or mass lesion. The visualized portions of the orbits, paranasal sinuses and the mastoid air cells appear clear. The calvarium is intact. Impression: 1. No acute intracranial process detected. 2. Mild age-related atrophy and bilateral periventricular small vessel ischemic changes seen. [facility] [place] Compliance Statement: One or more of the following individualized dose reduction techniques were utilized for this examination: 1. Automated exposure control 2. Adjustment of the mA and/or kV according to patient size 3. Use of iterative reconstruction technique Electronically signed by: Lashell Zavaleta MD (04/04/2021 5:01 PM) [facility] DICTATED AND SIGNED BY: LASHELL ZAVALETA MD DATE: 04/04/21 165 CC: JULISSA ARIAS APRN; YASMANY CASTRO ~MTH0 0 PROCEDURE: PORTABLE CHEST 1V Exam performed: One view chest. Indication: Reason: headache, dizziness / Spl. Instructions: / History: Date of Service: 04/04/2021 4:42 PM Comparison: One view chest from 03/13/2020 and priors. Single AP upright portable view chest findings: Cardiomediastinal silhouette is within limits of normal. No acute infiltrates, effusion or pneumothorax is detected. The bony structures are normal. Impression: No acute cardiopulmonary process is detected. Electronically signed by: Lashell Zavaleta MD (04/04/2021 5:02 PM) [facility] DICTATED AND SIGNED BY: LASHELL ZAVALETA MD DATE: 04/04/21 1702 CC: JULISSA ARIAS APRN; YASMANY CASTRO ~MTH0 0 (JULISSA ARIAS APRN) Heart Score C/O Chest Pain: N/A Risk Factors: Risk Factors: DM, Current or recent (<one month) smoker, HTN, HLP, family history of CAD, obesity. Risk Scores: Risk Factors: DM, Current or recent (<one month) smoker, HTN, HLP, family history of CAD, obesity. (MUTUNGA,JULISSA M CUSTOMER SERVICES SUPERVISOR) Course & Med Decision Making Course & Med Decision Making Pertinent Labs and Imaging studies reviewed. (See chart for details) This is a 71-year-old female patient presented to the ED today with a headache for 1 week and dizziness that began today. Vitals on arrival to the ED temperature 99.1, heart rate 68, respiration 20 on room air, BP 87, O2 sats 100%. CT of the head is negative for any acute findings. Chest x-ray is negative, EKG is negative, high-sensitivity troponin 472. Patient has previous history of NH with elevated troponins, previous labs patient has no chest pain. I spoke with he stated if patient needs to be admitted she can be admitted at [place] but she does not need be transferred to [place] Patient was still complaining of headache in the ED and blood pressure continues to be high, she states she missed her 3 PM blood pressure medicine which is losartan and Coreg, they were given in the ED. Informed patient if her blood pressure does not come down she will be admitted to the hospital. Informed patient if there is no bed in this hospital she will be [facility]. Patient at this point states at this point she has no headache or dizziness and will not go to [place] or accept to be admitted at [place]. I even asked patient to get up and ambulate on her own with no dizziness, she was able to ambulate with no symptoms. She was discharged to home. Follow-up with her own PCP and log rafter as soon as she can. BP came donw to 178/86 (JULISSA ARIAS CUSTOMER SERVICES SUPERVISOR) Course & Med Decision Making Did not see or evaluate patient. Did not discuss patient with PRIVACY SPECIALIST. Agree with PRIVACY SPECIALIST's work-up and disposition per note. (MAIN CAUSEY MD) Dragon Disclaimer Dragon Disclaimer This electronic medical record was generated, in whole or in part, using a voice recognition dictation system. (JULISSA ARIAS CUSTOMER SERVICES SUPERVISOR) Departure Departure: Impression: Primary Impression: Headache Additional Impressions: Hypertension, accelerated Dizziness Disposition: HOME / SELF CARE / HOMELESS Condition: STABLE Referrals: YASMANY CASTRO (PCP) follow up as soon as you can Patient Instructions: Dizziness, Gacm-ld-Limg, Headache, FAQs, Hypertension Additional Instructions: Please follow-up with your primary care doctor as soon as possible. Also follow-up with your log rafter. Ensure you are taking your medications as prescribed by your doctor Problem Qualifiers Primary Impression: Headache Headache type: unspecified Headache chronicity pattern: acute headache Intractability: not intractable Qualified Codes: R51.9 - Headache, unspecified JULISSA ARIAS APRN Apr 04, 2021 19:37 MAIN CAUSEY MD Apr 04, 2021 20:17
== END 2021-04-04 19:45 | disposition home or self-care (01) ==
LOC: ER 15:37
DX: I10 Essential (primary) hypertension (principal); R51.9 Headache, unspecified; R42 Dizziness and giddiness; M19.90 Unspecified osteoarthritis, unspecified site; E11.9 Type 2 diabetes mellitus without complications; E78.00 Pure hypercholesterolemia, unspecified; E03.9 Hypothyroidism, unspecified; I25.2 Old myocardial infarction; Z88.0 Allergy status to penicillin
CPT/HCPCS: 36415; 70450; 71045; 80053; 80307; 81001; 82553; 82947; 83735; 83880; 84443; 84484; 85025; 85610; 85730; 93005; 99285

== ENCOUNTER → 2021-07-05 | Outpatient (CLI) | payer MEDICARE, OTHER ==
--- NOTE | 2021-07-05 13:57 | RAD ---
EXAM: CT HEAD WITHOUT CONTRAST. HISTORY: Fall, syncope, dizziness, vision changes. TECHNIQUE: Computed tomography of the head was performed without intravenous contrast. One or more of the following individualized dose reduction techniques were utilized for this examination: 1. Automated exposure control. 2. Adjustment of the mA and/or kV according to patient size. 3. Use of iterative reconstruction technique. COMPARISON: 04/04/2021. FINDINGS: There is no intracranial hemorrhage. There is a small chronic infarct within the left paraf alcine occipital lobe. Hypoattenuation within the periventricular white matter indicates mild to mode rate chronic microangiopathic change elsewhere. The ventricles are normal in size and position. The visualized paranasal sinuses appear clear. The orbits are unremarkable. The temporal bones are un remarkable. The calvarium reveals no suspicious lesions. IMPRESSION: 1. No acute intracranial findings. 2. 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 Electronically signed by: Lori Lee MD (07/05/2021 1:54 PM) [id number]
== END ==
LOC: CT 12:48
PROVIDERS: ATTEND Physician Assistant Medical
DX: I63.9 Cerebral infarction, unspecified (principal); H53.9 Unspecified visual disturbance; R55 Syncope and collapse
CPT/HCPCS: 70450